=== PATIENT | female | born 1965 | race Caucasian/White ===

== ENCOUNTER 2020-02-27 15:39 | Outpatient (REF) | payer MEDICARE, MEDICAID, SELFPAY ==
--- NOTE | 2020-02-27 15:45 | XR_ITS ---
EXAMINATION: XR HIP, RIGHT CLINICAL INFORMATION: Right hip pain COMPARISON: None TECHNIQUE: Pelvis, AP view Right hip, 2 views FINDINGS: Multiple metallic tacks from mesh overlie the lower abdomen, periumbilical area. Bowel gas pattern is normal. Mild levocurvature of the lumbar spine. Pelvic bones have normal alignment. Mild joint degeneration with osteophyte formation of the pubic symphysis. The joint space of each hip is well-preserved. At the right hip, femoral head is well-positioned within the intact acetabulum. No evidence of arthritic disease, fracture or osteonecrosis. No suspicious lytic or osteoblastic lesion. Small, 0.5 cm soft tissue calcification is noted in the proximal thigh. No radiographic evidence of soft tissue mass. A few phleboliths are noted in the lower pelvis. There is likely a small focus of calcium hydroxyapatite deposition in the gluteus medius tendon of the left hip. XR/XR hip RT w PEL1V IMPRESSION: No specific source of right hip pain is identified. No evidence of degenerative joint disease at the right hip. No osteonecrosis, fracture or malalignment.
== END 2020-02-27 15:40 | disposition home or self-care (01) ==
LOC: HO.XRAY 15:39
PROVIDERS: PCP Family Medicine; Visit Provider Family Medicine
DX: M25.551 Pain in right hip (principal)
CPT/HCPCS: 73502

== ENCOUNTER 2020-03-22 15:32 | Outpatient (REF) | payer MEDICARE, MEDICAID, SELFPAY ==
--- NOTE | 2020-03-22 15:34 | US_ITS ---
EXAMINATION: US ABDOMEN LIMITED CLINICAL INFORMATION: Periumbilical pain. COMPARISON: None TECHNIQUE: Grayscale real-time imaging of the midline abdominal wall umbilical region. Color Doppler exam used. FINDINGS: Small pocket of fluid seen just deep to the skin line within the subcutaneous area at the midline. This is anechoic fluid with no increased vascularity on color Doppler. Fluid collection measures 1.2 x 0.4 x 0.9 cm. No ventral wall hernia. US/US abdomen limited IMPRESSION: There is a small anechoic fluid collection at the umbilicus just deep to the skin line. There is no ventral wall hernia.
--- NOTE | 2020-03-22 15:34 | XR_ITS ---
EXAMINATION: XR PELVIS CLINICAL INFORMATION: Right hip pain COMPARISON: Previous pelvis and right hip x-ray 02/27/2020 TECHNIQUE: AP view of the pelvis. FINDINGS: Bone alignment is normal. No fracture or dislocation is seen. The hip joints are normal. There is a small soft tissue calcification adjacent to the left greater trochanter. There is evidence of previous low abdominal or pelvic hernia repair with mesh. XR/XR pelvis 1-2V IMPRESSION: Soft tissue calcification adjacent to the left greater trochanter otherwise unremarkable exam
== END 2020-03-22 15:33 | disposition home or self-care (01) ==
LOC: HO.US 15:32
PROVIDERS: PCP Family Medicine; Visit Provider Family Medicine
DX: R10.33 Periumbilical pain (principal); M79.18 Myalgia, other site; M25.551 Pain in right hip
CPT/HCPCS: 72170; 76705

== ENCOUNTER → 2020-04-12 13:32 | Outpatient (BNVA) | payer MEDICARE, MEDICAID, SELFPAY | PROVIDERS: PCP Family Medicine; Visit Provider Surgery | DX: R10.33 Periumbilical pain (principal) | CPT/HCPCS: 99202 ==

== ENCOUNTER 2020-04-15 07:02 | Outpatient (REF) | payer MEDICARE, MEDICAID, SELFPAY ==
[2020-04-15 12:00] LABS: MANUAL DIFF FLAG NO
[2020-04-15 12:13] LABS: Basophils Absolute Auto 0.1 X10*3/uL (0.0-0.2); Basophils Percent Auto 1.2 % (0-2); Eosinophils Absolute Auto 0.6 X10*3/uL (0.0-0.4); Eosinophils Percent Auto 7.5 % (0-4); Hematocrit 44.4 % (37-47); Hemoglobin 13.8 g/dl (12.0-16.0); Imm Gran Abs Auto 0.02 X10*3/uL (0.00-0.03); Imm Gran Pct Auto 0.2 % (0.0-0.4); Lymphocytes Absolute Auto 3.4 X10*3/uL (1.2-4.9); Lymphocytes Percent Auto 40.1 % (20-40); Mean Corpuscular HGB Conc 31.1 g/dl (31.0-35.0); Mean Corpuscular Hemoglobin 28.6 pg (27.0-33.0); Mean Corpuscular Volume 92.1 fL (80-98); Mean Platelet Volume 10.6 fL (9.4-12.3); Monocytes Absolute Auto 0.8 X10*3/uL (0.1-1.2); Monocytes Percent Auto 9.8 % (2-11); Neutrophils Absolute Auto 3.4 X10*3/uL (2.0-8.3); Neutrophils Percent Auto 41.2 % (45-73); Platelet Count 345 X10*3/uL (160-400); Red Blood Count 4.82 X10*6/uL (4.20-5.50); Red Cell Distribution Width 14.3 % (11.0-16.0); White Blood Count 8.4 X10*3/uL (4.8-10.8)
[2020-04-15 12:54] LABS: Alanine Aminotransferase 10 U/L (0-31); Albumin Level 4.1 g/dL (3.5-5.0); Alkaline Phosphatase 112 U/L (39-117); Anion Gap 13 (12-20); Aspartate Amino Transferase 13 U/L (5-31); Bilirubin Total 0.4 mg/dL (0.0-1.0); Blood Urea Nitrogen 13 mg/dL (9-16); Calcium 8.8 mg/dL (8.4-10.2); Carbon Dioxide 28 mmol/L (22-29); Chloride 104 mmol/L (96-108); Estimated Glomerular Filt Rate > 60; Glucose Fasting 81 mg/dL (60-99); Potassium 4.9 mmol/l (3.3-5.1); Sodium 140 mmol/L (135-145); Total Protein 6.8 g/dL (6.5-8.0)
[2020-04-15 13:07] LABS: TSH reflex Free T4 1.26 mIU/mL (0.32-4.0)
== END 2020-04-15 07:03 | disposition home or self-care (01) ==
LOC: HO.WFDLDS 07:02
PROVIDERS: Visit Provider Family Medicine
DX: Z00.00 Encounter for general adult medical examination without abnormal findings (principal); R63.1 Polydipsia; T65.91XA Toxic effect of unspecified substance, accidental (unintentional), initial encounter
CPT/HCPCS: 36415; 80053; 84443; 85025

== ENCOUNTER 2020-04-16 07:05 | Outpatient (REF) | payer MEDICARE, MEDICAID, SELFPAY ==
--- NOTE | 2020-04-16 07:08 | CT_ITS ---
EXAMINATION: CT ABDOMEN AND PELVIS WITHOUT CONTRAST CLINICAL INFORMATION: Periumbilical pain. COMPARISON: Abdominal ultrasound dated 03/22/2020. TECHNIQUE: Multidetector volumetric imaging was performed from the superior aspect of the liver through the pubic symphysis. Sagittal and coronal reformatted images were obtained on the technologist's workstation. This CT examination was performed using dose optimization techniques as appropriate, variously including the following: *Automated exposure control *Adjustment of mA and/or kV according to patient size (this includes techniques or standardized protocols for targeted exams where dose is matched to indication/reason for exam; i.e. extremities or head) *Use of iterative reconstruction technique DLP: 767 mGy-cm FINDINGS: LUNG BASES: There is mild right middle lobe linear scar/subsegmental atelectasis. There is mild dependent hypoaeration. LIVER, GALLBLADDER, AND BILIARY TREE: The liver is normal in size, shape, and attenuation. No focal hepatic lesion or biliary ductal dilatation is present. The gallbladder is surgically absent. PANCREAS: Unremarkable. SPLEEN: There is no splenomegaly. Posteriorly within the spleen, there is a 1.6 x 1.4 cm low-attenuation collection with small central calcification. This may represent a hemangioma or mildly complex cyst. ADRENAL GLANDS: The right adrenal gland is unremarkable. There is a 3.1 x 3.0 cm benign, fat-containing left adrenal adenoma, with precontrast Hounsfield value of -10.2 units. KIDNEYS AND URETERS: The kidneys are normal in size, shape, and attenuation. No hydronephrosis, hydroureter, or calculi seen. No perinephric stranding. BLADDER: Unremarkable. GASTROINTESTINAL TRACT: There is a mild to moderate stool burden. There is mild diverticulosis, without acute diverticulitis. No bowel obstruction, free intraperitoneal air or abscess is seen. The vermiform appendix appears normal. ABDOMINAL WALL: Anterior abdominal wall herniorrhaphy mesh is noted. There is a small fat-containing umbilical hernia defect seen with neck measuring 2.0 x 1.5 cm (3:52 and 7:86). LYMPH NODES: No sizable abdominopelvic lymphadenopathy is seen. VASCULAR: There is mild aortic atherosclerotic calcification. No abdominal aortic aneurysm is seen. PELVIC VISCERA: The uterus and adnexa are unremarkable. OSSEOUS STRUCTURES: There is marked degenerative disc disease extending from L3-L4 through L5-S1. No acute or aggressive osseous abnormality is seen. CT/CT abdomen pelvis wo con IMPRESSION: 1. There has been a prior anterior abdominal wall herniorrhaphy. A small fat-containing umbilical hernia is seen, with dimensions as above. 2. No bowel obstruction, free intraperitoneal air or abscess is seen. There is mild diverticulosis, without acute diverticulitis. The appendix appears normal. 3. The gallbladder is surgically absent. 4. A 1.6 cm low-attenuation collection is seen within the spleen, with associated small calcifications. This may represent a hemangioma or mildly complex cyst, although the exact etiology is indeterminate. If of clinical concern, this can be further evaluated with ultrasound. 5. No abdominopelvic mass, free fluid or lymphadenopathy is seen. 6. There is marked degenerative disc disease extending from L3-L4 through L5-S1.
== END 2020-04-16 07:06 | disposition home or self-care (01) ==
LOC: HO.CT 07:05
PROVIDERS: Visit Provider Surgery
DX: R10.33 Periumbilical pain (principal)
CPT/HCPCS: 74176

== ENCOUNTER → 2020-04-22 14:13 | Outpatient (BNVA) | payer MEDICARE, MEDICAID, SELFPAY | PROVIDERS: PCP Family Medicine; Visit Provider Surgery | DX: K42.9 Umbilical hernia without obstruction or gangrene (principal); E66.01 Morbid (severe) obesity due to excess calories; Z68.41 Body mass index [BMI] 40.0-44.9, adult | CPT/HCPCS: 99212 ==

== ENCOUNTER → 2020-05-28 15:13 | Outpatient (BNVA) | payer MEDICARE, MEDICAID, SELFPAY | PROVIDERS: PCP Family Medicine; Visit Provider Student in an Organized Health Care Education/Training Program | DX: M25.50 Pain in unspecified joint (principal); F17.200 Nicotine dependence, unspecified, uncomplicated; Z71.6 Tobacco abuse counseling | CPT/HCPCS: 99202 ==

== ENCOUNTER 2020-05-29 07:30 | Outpatient (REF) | payer MEDICARE, MEDICAID, SELFPAY ==
--- NOTE | ~2020-05-29 | XR_ITS ---
EXAMINATION: XR CERVICAL SPINE XR HAND AND WRIST, RIGHT XR HAND, LEFT XR FOOT, LEFT CLINICAL INFORMATION: Pain COMPARISON: None TECHNIQUE: Cervical spine 3 views. Right hand/wrist 3 views. Left hand 3 views. Left foot 3 views. FINDINGS: CERVICAL SPINE: There is normal cervical lordosis. The vertebral heights and alignment is normal. There is loss of C5-C6 and C6-C7 disc height with ventral and posterior spondylosis. No visible acute fracture or dislocation seen. The prevertebral soft tissues are normal. RIGHT HAND/WRIST: There is mild loss of PIP and DIP joint space of all digits and 1st carpometacarpal joint space with periarticular moderate spurring. The rest of the joints in the hand and the wrist appears unremarkable. No visible acute fracture or dislocation seen. The soft tissues are normal. LEFT HAND: There is loss of PIP and DIP joint space. Also visualized is loss of 1st carpometacarpal joint space with moderate periarticular spurring. No visible acute fracture, dislocation or subluxation seen. The soft tissues are normal. LEFT FOOT: There is a small calcaneal heel and retrocalcaneal enthesophytes. Also visualized is dorsal intertarsal spurring. Mild loss of PIP and DIP joints is present all digits. Mild periarticular spurring is seen at the DIP joints 2nd and 3rd digit. There is no visible acute fracture or dislocation. XR/XR hand LT min 3V IMPRESSION: 1. Degenerative disc changes C5-C6 and C6-C7 disc levels. No visible acute fracture or dislocation or subluxation. 2. Degenerative arthritic changes both hands and wrist as described above. 3. Small enthesophytes along the dorsal intertarsal, retrocalcaneal and calcaneal heel sites. No visible acute fracture or dislocation seen.
--- NOTE | ~2020-05-29 | XR_ITS ---
EXAMINATION: XR CERVICAL SPINE XR HAND AND WRIST, RIGHT XR HAND, LEFT XR FOOT, LEFT CLINICAL INFORMATION: Pain COMPARISON: None TECHNIQUE: Cervical spine 3 views. Right hand/wrist 3 views. Left hand 3 views. Left foot 3 views. FINDINGS: CERVICAL SPINE: There is normal cervical lordosis. The vertebral heights and alignment is normal. There is loss of C5-C6 and C6-C7 disc height with ventral and posterior spondylosis. No visible acute fracture or dislocation seen. The prevertebral soft tissues are normal. RIGHT HAND/WRIST: There is mild loss of PIP and DIP joint space of all digits and 1st carpometacarpal joint space with periarticular moderate spurring. The rest of the joints in the hand and the wrist appears unremarkable. No visible acute fracture or dislocation seen. The soft tissues are normal. LEFT HAND: There is loss of PIP and DIP joint space. Also visualized is loss of 1st carpometacarpal joint space with moderate periarticular spurring. No visible acute fracture, dislocation or subluxation seen. The soft tissues are normal. LEFT FOOT: There is a small calcaneal heel and retrocalcaneal enthesophytes. Also visualized is dorsal intertarsal spurring. Mild loss of PIP and DIP joints is present all digits. Mild periarticular spurring is seen at the DIP joints 2nd and 3rd digit. There is no visible acute fracture or dislocation. XR/XR foot LT 2V IMPRESSION: 1. Degenerative disc changes C5-C6 and C6-C7 disc levels. No visible acute fracture or dislocation or subluxation. 2. Degenerative arthritic changes both hands and wrist as described above. 3. Small enthesophytes along the dorsal intertarsal, retrocalcaneal and calcaneal heel sites. No visible acute fracture or dislocation seen.
--- NOTE | ~2020-05-29 | XR_ITS ---
EXAMINATION: XR CERVICAL SPINE XR HAND AND WRIST, RIGHT XR HAND, LEFT XR FOOT, LEFT CLINICAL INFORMATION: Pain COMPARISON: None TECHNIQUE: Cervical spine 3 views. Right hand/wrist 3 views. Left hand 3 views. Left foot 3 views. FINDINGS: CERVICAL SPINE: There is normal cervical lordosis. The vertebral heights and alignment is normal. There is loss of C5-C6 and C6-C7 disc height with ventral and posterior spondylosis. No visible acute fracture or dislocation seen. The prevertebral soft tissues are normal. RIGHT HAND/WRIST: There is mild loss of PIP and DIP joint space of all digits and 1st carpometacarpal joint space with periarticular moderate spurring. The rest of the joints in the hand and the wrist appears unremarkable. No visible acute fracture or dislocation seen. The soft tissues are normal. LEFT HAND: There is loss of PIP and DIP joint space. Also visualized is loss of 1st carpometacarpal joint space with moderate periarticular spurring. No visible acute fracture, dislocation or subluxation seen. The soft tissues are normal. LEFT FOOT: There is a small calcaneal heel and retrocalcaneal enthesophytes. Also visualized is dorsal intertarsal spurring. Mild loss of PIP and DIP joints is present all digits. Mild periarticular spurring is seen at the DIP joints 2nd and 3rd digit. There is no visible acute fracture or dislocation. XR/XR cervical spine 2V IMPRESSION: 1. Degenerative disc changes C5-C6 and C6-C7 disc levels. No visible acute fracture or dislocation or subluxation. 2. Degenerative arthritic changes both hands and wrist as described above. 3. Small enthesophytes along the dorsal intertarsal, retrocalcaneal and calcaneal heel sites. No visible acute fracture or dislocation seen.
--- NOTE | ~2020-05-29 | XR_ITS ---
EXAMINATION: XR CERVICAL SPINE XR HAND AND WRIST, RIGHT XR HAND, LEFT XR FOOT, LEFT CLINICAL INFORMATION: Pain COMPARISON: None TECHNIQUE: Cervical spine 3 views. Right hand/wrist 3 views. Left hand 3 views. Left foot 3 views. FINDINGS: CERVICAL SPINE: There is normal cervical lordosis. The vertebral heights and alignment is normal. There is loss of C5-C6 and C6-C7 disc height with ventral and posterior spondylosis. No visible acute fracture or dislocation seen. The prevertebral soft tissues are normal. RIGHT HAND/WRIST: There is mild loss of PIP and DIP joint space of all digits and 1st carpometacarpal joint space with periarticular moderate spurring. The rest of the joints in the hand and the wrist appears unremarkable. No visible acute fracture or dislocation seen. The soft tissues are normal. LEFT HAND: There is loss of PIP and DIP joint space. Also visualized is loss of 1st carpometacarpal joint space with moderate periarticular spurring. No visible acute fracture, dislocation or subluxation seen. The soft tissues are normal. LEFT FOOT: There is a small calcaneal heel and retrocalcaneal enthesophytes. Also visualized is dorsal intertarsal spurring. Mild loss of PIP and DIP joints is present all digits. Mild periarticular spurring is seen at the DIP joints 2nd and 3rd digit. There is no visible acute fracture or dislocation. XR/XR hand wrist RT IMPRESSION: 1. Degenerative disc changes C5-C6 and C6-C7 disc levels. No visible acute fracture or dislocation or subluxation. 2. Degenerative arthritic changes both hands and wrist as described above. 3. Small enthesophytes along the dorsal intertarsal, retrocalcaneal and calcaneal heel sites. No visible acute fracture or dislocation seen.
[2020-05-29 07:59] LABS: MANUAL DIFF FLAG NO
[2020-05-29 08:25] LABS: Alanine Aminotransferase 12 U/L (0-31); Albumin Level 4.3 g/dL (3.5-5.0); Alkaline Phosphatase 120 U/L (39-117); Anion Gap 12 (12-20); Aspartate Amino Transferase 14 U/L (5-31); Bilirubin Total 0.5 mg/dL (0.0-1.0); Blood Urea Nitrogen 8 mg/dL (9-16); C Reactive Protein 0.19 mg/dL (< or = 0.50); Calcium 9.3 mg/dL (8.4-10.2); Carbon Dioxide 27 mmol/L (22-29); Chloride 105 mmol/L (96-108); Estimated Glomerular Filt Rate > 60; Glucose Random 92 mg/dL (60-115); Potassium 4.6 mmol/L (3.3-5.1); Rheumatoid Factor < 15.0 IU/mL (<15.0); Sodium 139 mmol/L (135-145)
[2020-05-29 08:28] LABS: Basophils Absolute Auto 0.1 X10*3/uL (0.0-0.2); Basophils Percent Auto 1.3 % (0-2); Eosinophils Absolute Auto 0.8 X10*3/uL (0.0-0.4); Eosinophils Percent Auto 11.3 % (0-4); Hematocrit 44.7 % (37-47); Imm Gran Abs Auto 0.02 X10*3/uL (0.00-0.03); Imm Gran Pct Auto 0.3 % (0.0-0.4); Lymphocytes Absolute Auto 2.5 X10*3/uL (1.2-4.9); Lymphocytes Percent Auto 35.4 % (20-40); Mean Corpuscular HGB Conc 31.3 g/dl (31.0-35.0); Mean Corpuscular Hemoglobin 28.3 pg (27.0-33.0); Mean Corpuscular Volume 90.3 fL (80-98); Monocytes Absolute Auto 0.7 X10*3/uL (0.1-1.2); Monocytes Percent Auto 9.2 % (2-11); Neutrophils Percent Auto 42.5 % (45-73); Platelet Count 355 X10*3/uL (160-400); Red Blood Count 4.95 X10*6/uL (4.20-5.50); Red Cell Distribution Width 14.3 % (11.0-16.0); White Blood Count 7.1 X10*3/uL (4.8-10.8)
[2020-05-29 08:48] LABS: Thyroid Stimulating Hormone 0.51 uIU/mL (0.32-4.0)
[2020-05-29 09:28] LABS: Erythrocyte Sedimentation Rate 13 MM/HR (0-20)
[2020-05-31 13:01] LABS: Cyclic Citrullinated Peptide <16 UNITS
[2020-05-31 19:36] LABS: Anti Nuclear Antibody Screen NEGATIVE (NEGATIVE)
[2020-06-01 13:52] LABS: Antibody to SS-A Antigen <1.0 NEG AI (<1.0 NEG); Antibody to SS-B Antigen <1.0 NEG AI (<1.0 NEG)
[2020-06-02 13:22] LABS: Vitamin D 25-OH, D2 5 ng/mL; Vitamin D 25-OH, D3 24 ng/mL; Vitamin D 25-OH, Total 29 ng/mL (30-100)
== END 2020-05-29 07:31 | disposition home or self-care (01) ==
LOC: HO.XRAY 07:30
PROVIDERS: PCP Family Medicine; Visit Provider Student in an Organized Health Care Education/Training Program
DX: M25.50 Pain in unspecified joint (principal)
CPT/HCPCS: 36415; 72040; 73110; 73130; 73620; 80053; 82306; 84443; 85025; 85652; 86038; 86039; 86140; 86200; 86235; 86431

== ENCOUNTER 2020-06-16 07:00 | Outpatient (RCR) | payer MEDICARE, MEDICAID, SELFPAY ==
--- NOTE | 2020-03-10 09:48 | MHC.PT.EP ---
[facility] [place] Office [place] Office [place] Office [address] Ivon Corona [address] [phone] F: [phone] F: [phone] F: [phone] F: [phone] Physical Therapy Plan of Care Date of Evaluation: 03/10/20 Date of Surgery: NA Diagnosis: CONTUSION R HIP S/P FALL Assessment: Pt IS 55 YO F REFERRED TO PT FROM DR DICKINSON WITH CONTUSION R HIP S/P FALL ON 02/26/20. Pt REPORTS PT IN PAST WITH CONTINUATION OF EXS/STRETCHES. PRESENTS WITH DECREASED R LE FLEXIBILITY AND STRENGTH. LIMP WITH GT AND LIMITED SLS. Pt REPORTS PAIN R HIP/LE LIMITING FUNCTIONAL MOBILITY AND ABILITY TO SLEEP. OF NOTE, Pt REPORTS SIGNIF OA IN HANDS AFFECTING INDEPENDENCE. Pt IS ON SOCIAL SECURITY AND WORKING ON GETTING A CUSHION BUILDER TO HELP AT HER HOME. REPORTS PT IN PAST WITH GOOD RESULTS Frequency and Duration: The patient will be seen 2X/WK X 4 WEEKS Short Term Goals: 1. INCREASED AWARENESS HIP CARE AND OVERALL BODY MECH 2. CENTRALIZED SXS 3. IMPROVED SLEEP 4. NO LIMP WITH GT (INCREASED STANCE TIME R) 5. SLS R X 10 SEC Alf Goals: 1. I HEP WITH DC EX PLAN 2. IMPROVED LEFI 3. DECREASED R HIP/LE PAIN AT LEAST 50% WITH ADLS 4. INCREASE TRUNK SB AND ROT R 25% Treatment Plan: Modalities to reduce pain, spasms and effusion. Manual therapy to restore motion and function. Therapeutic exercise to improve strength and flexibility. Neuromuscular re-education for posture and balance. Therapeutic activities to return to functional activities of daily living. Electronically signed by: FARZANA BROWER PT Please sign and return to therapist. Thank you for your referral.
--- NOTE | 2020-06-16 08:05 | MHC.PT.DC ---
[facility] [place] Office [place] Office [place] Office [address] Ivon Corona 140 [facility] [phone] F: [phone] F: [phone] F: [phone] F: [phone] Physical Therapy Discharge Report Diagnosis: CONTUSION R HIP S/P FALL Date of Surgery: NA Date of Evaluation: 03/10/20 Date of Discharge: 06/16/20 Treatments to Date: 15 Cancellations to Date: 1 No Shows to Date: 0 Discharge Status: Achieved Goals Improved Function Independent with HEP Discharge Summary: HAS MET MOST PT GOALS Electronically signed by: FARZANA BROWER PT Please sign and return to therapist. Thank you for your referral.
== END 2020-06-17 12:20 | disposition other institution (70) ==
LOC: HO.PTWFD 07:00
PROVIDERS: PCP Family Medicine; Visit Provider Family Medicine
DX: M25.551 Pain in right hip (principal); M79.18 Myalgia, other site; S70.01XD Contusion of right hip, subsequent encounter
CPT/HCPCS: 87071; 87205; 97110; 97140; 97162; 97530

== ENCOUNTER → 2020-06-17 14:13 | Outpatient (BNVA) | payer MEDICARE, MEDICAID, SELFPAY | PROVIDERS: Visit Provider Student in an Organized Health Care Education/Training Program | DX: M25.50 Pain in unspecified joint (principal) | CPT/HCPCS: 99212 ==

== ENCOUNTER 2020-07-19 07:30 | Outpatient (RCR) | payer MEDICARE, MEDICAID, SELFPAY ==
--- NOTE | 2020-06-21 15:20 | MHC.OT.OEV ---
[address] [phone] F: [phone] Occupational Therapy Evaluation Diagnosis: B/L OA Date of Onset: 03/19/18 Attending Provider: Dr Lion Prescribed Treatment: Karly and Rand SWAIN Follow Up Appointment: History of Current Condition: Pt with worsening pain in the hands over the past few years, has gone to physical therapy in the past with some relief, follows a HEP and does epsom salt warm baths for relief. PCP referred to rheumatology and now to OT for conservative management of bilateral hand OA. X-ray of hands show bilaterally mild OA changes in IP's and moderate spurring on CMCs. Significant Medical History: Osteoporosis Arthritis Back Pain Right CTR Precautions/Contraindications: Patient Goals: Relieve the pain Hand Dominance: Right Observations: Wearing isotonor gloves bilaterally QuickDASH Score: 88 Prior Level of Function and Occupation Self Care, Employment, Leisure: On disability Assists w/ homeschooling 7 year old grandson Enjoys hiking, cleaning, playing and coloring with her grandson Living Situation, Family and/or Social Support: Lives w/ son and grandson Current Level of Function and Occupation Self Care, Employment, Leisure: Son has been assisting with laundry (for lifting) Sleep: Also has insomnia and sleep apnea More recent increase in pain has worsened sleep Driving: Limited driving Pain Assessment Pain Score: 10 Pain Scale Used: Numeric (0 - 10) Pain Location and Description: Constant 10/10 pain in right hand, 5/5 left hand Aggravating Factors: Heaving lifting, gripping, grasping pens/crayons Alleviating Factors: Warm water baths for relief w/ epsom salts Trues to avoid pain medications Skin and Soft Tissue Assessment Skin and Soft Tissue: Comments: No nodudles observed Nerve assessment Ulnar Nerve: B/L Impaired Median Nerve: B/L Impaired Radial Nerve: B/L Impaired Comments: General weakness 4-/5 Sensory Assessment Temperature: Light Touch: Proprioception: Vibration: Comments: Intact light touch bilaterally Pt reports occasional numbness in left D1-D3 Edema Assessment Upper Extremity: WNL Lower Extremity: WNL Comments: Dexterity Assessment Dexterity: Comments: Special Tests Comments: (-) grind right (+) grind left (+) Terese's sign B/L'ly (-) Phalen's B/L'ly AROM(PROM) Strength Cervical Cervical Flexion: Cervical Extension: Cervical Lateral Flexion: Cervical Rotation: Comments: WNL Shoulder Flexion: Extension: Abduction: Internal Rotation: External Rotation: Comments: WNL Flexion: Extension: Abduction: Internal Rotation: External Rotation: Comments: Elbow Flexion: Extension: Pronation: Supination: Comments: WNL Flexion: Extension: Pronation: Supination: Comments: Wrist Flexion: R 60 L 70 Extension: R 70 L 72 Ulnar Deviation: R 28 L 42 Radial Deviation: R 12 L 15 Comments: Flexion: Extension: Ulnar Deviation: Radial Deviation: Comments: Thumb Thumb CMC Flexion: R 32 L 20 Thumb MCP Flexion: R 34 L 54 Thumb IP Flexion: R 44 L 42 Radial Abduction: R 46 L 42 Palmar Abduction: R 46 L 42 Whiteface (Kapandji 0-10): R 8 L 9 Comments: Slightly limited rotation bilaterally w/ okay positioning Digits Index MCP: PIP: DIP: Long MCP: PIP: DIP: Ring MCP: PIP: DIP: Small MCP: PIP: DIP: Comments: WNL, avoids active flexion of index, passive to full range Pt w/ grade 3 trigger finger, locks but is able to unlock passively, tenderness to volar D2 MCP Gross Grasp: R 5 L 18 Lateral Pinch: R 1 L 1 Two-Point Pinch: R 1 L 1 Three-Jaw Larry: R 1 L 2 Comments: avoiding right index w/ gross grasp due to trigger finger Patient Education Primary Language: Turkmen Stunner Required: No Current Knowledge: Understands information with skills for self-management Teaching Method: Demonstration Handouts Verbal Education Needs Identified on Evaluation: ADL's Disease Information Equipment Use Exercise Pain Safety How did patient/family demonstrate learning? Patient demonstrates Patient verbalizes Barriers to Learning: None Readiness for Learning: Accepting Who was educated? Patient Comments: Joint protection HEP Plan of Care Assessment: 55 yo female w/ history of osteoarthritis presents w/ persistent pain in both hands. Assessment shows decreased strength and decreased functional capacity, she has mild malpositioning at bilateral CMC's, left is worse than right w/ positive grind test. She also reports numbness in left hand D1-D3 and right index trigger finger. She will benefit from cont'd therapy services to address hand pain and functional limitations. STG Duration: 1 week Short Term Goals: Ind w/ orthosis wear Ind w/ HEP Good follow through w/ joint protection/activity modification techniques Pt to report zero trigger w/ consistency of oval 8 orthosis to index LTG Duration: 4 weeks Returned Case Inspector Goals: Right gross grasp >15lb Left gross grasp >25lb <3/10 resting pain right hand <1/10 resting pain left hand Quickdash score <50 pts Frequency and Duration: The patient will be seen 2x/wk for 4 weeks Treatment Plan: Therapeutic Exercise Therapeutic Activity Home Exercise Program Splinting Patient Education ADL Training Ultrasound Paraffin Fluidotherapy MHP Cold Packs Joint Mobilization Soft Tissue Mobilization Kinesiotaping Electronically Signed By: Ghada Swanson OTR/L Reviewed/agree with student documentation: N/A Please sign and return to therapist, Thank you for your referral.
--- NOTE | 2020-07-20 08:43 | MHC.OT.DC ---
[address] [phone] F: [phone] Occupational Therapy Discharge Note Provider: Dr Lion Diagnosis: B/L OA Date of Evaluation: 06/21/20 Date of Discharge: 07/19/20 Treatments to Date: 8 Cancellations to Date: 0 No Shows to Date: 0 Discharge Status: Achieved Goals Improved Function Independent with HEP Discharge Summary: Goals met, still with moderate pain at times, will benefit from orthosis wear (she has not yet gotten correct thumb spica splints) and AE use. Gross grasp R 25lb (pain free) L 42lb QuickDASH score 7.5 Electronically Signed By: Ghada Swanson OTR/L Reviewed/agree with student documentation: N/A Please Sign and return to therapist, thank you for your referral.
== END 2020-07-20 08:44 | disposition other institution (70) ==
LOC: HO.OT 07:30
PROVIDERS: PCP Family Medicine; Visit Provider Student in an Organized Health Care Education/Training Program
DX: M79.642 Pain in left hand (principal); M79.641 Pain in right hand
CPT/HCPCS: 29130; 97035; 97110; 97140; 97165; 97760

== ENCOUNTER 2020-07-22 07:00 | Outpatient (RCR) | payer MEDICARE, MEDICAID, SELFPAY ==
--- NOTE | 2020-06-25 09:03 | MHC.PT.EP ---
[facility] [place] Office [place] Office [place] Office [address] Ivon Corona [address] [phone] F: [phone] F: [phone] F: [phone] F: [phone] Physical Therapy Plan of Care Date of Evaluation: 06/25/20 Date of Surgery: NA Diagnosis: cervical spine and B ankle pain Assessment: 55 year old female referred for cervical spine and B ankle pain. Pt reports of having h/o chronic pain due to arthritis which has gotten worse with time. She denies any trauma or falls. Pt has difficulty performing over head activities, self care activities, walking, standing and sleeping due to muscle guarding in L UT, TTP over L UT, decreased cervical motions, decreased shoulder and cervical strength, decreased muscle strength in B LE, impaired posture and gait. She would benefit from PT to address these impairments and increase tolerance to activities. She is a good candidate for PT based on age, goals, physical impairments and functional limitations. Frequency and Duration: The patient will be seen 2/week for 5 weeks Short Term Goals: 1. Pt will have 50% decrease in pain in her neck which enable her to sleep through the night in 2 weeks. 2. Pt will demonstrate full shoulder ROM which would enable her to dress self with a pain no more than 2/10 in 3 weeks. [employer] Hand Goals: 1. Pt will demonstrate increase in muscle strength by 1 grade which would enable her to walk, stand and hike with a pain no more than 2/10 in B ankle in 5 weeks. 2. Pt will be independent with HEPs for symptom management and maintenance following discharge in 5 weeks. Treatment Plan: Modalities to reduce pain, spasms and effusion. Manual therapy to restore motion and function. Therapeutic exercise to improve strength and flexibility. Neuromuscular re-education for posture and balance. Therapeutic activities to return to functional activities of daily living. Electronically signed by: Elle Jones, PT, DPT Please sign and return to therapist. Thank you for your referral.
--- NOTE | 2020-08-11 15:08 | MHC.PT.DC ---
[facility] [place] Office [place] [facility] [place] Office [address] Ivon Corona [address] [phone] F: [phone] F: [phone] F: [phone] F: [phone] Physical Therapy Discharge Report Diagnosis: cervical spine and B ankle pain Date of Surgery: NA Date of Evaluation: 06/25/20 Date of Discharge: 08/11/20 Treatments to Date: 9 Cancellations to Date: 0 No Shows to Date: 0 Discharge Status: Achieved Goals Improved Function Independent with HEP Discharge Summary: Tammy has completed 9 PT visits and has noted significant improvement in her pain levels and functions. She is independent with all HEPs as well. She was therefore d/c from therapy. Electronically signed by: Elle Jones, PT, DPT Please sign and return to therapist. Thank you for your referral.
== END 2020-08-11 15:08 | disposition other institution (70) ==
LOC: HO.PT 07:00
PROVIDERS: PCP Family Medicine; Visit Provider Student in an Organized Health Care Education/Training Program
DX: M25.50 Pain in unspecified joint (principal)
CPT/HCPCS: 97033; 97035; 97110; 97112; 97140; 97162; 97530

== ENCOUNTER 2023-07-26 06:12 | Outpatient (REF) | payer MEDICARE, MEDICAID, SELFPAY ==
--- NOTE | ~2023-07-26 | XR_ITS ---
EXAMINATION: XR CERVICAL SPINE XR HAND AND WRIST, RIGHT XR HAND, LEFT CLINICAL INFORMATION: Pain. COMPARISON: 05/29/2020 x-ray cervical spine, right hand/wrist, left hand. TECHNIQUE: Cervical spine 4 views. Right hand3 views. Left hand 3 views. FINDINGS: CERVICAL SPINE: Degenerative changes between the anterior arch of C1 and the odontoid. Mild anterolisthesis of C4 on C5. Multilevel cervical spondylosis with advanced degenerative changes and loss of disc space height at C5-C6 and C6-C7 as previously noted. Minimal anterolisthesis of C7 on T1. Rightward curvature with degenerative changes in the partially imaged upper thoracic spine. RIGHT HAND: Vzfg-ku-ovcrucvx degenerative changes in the DIP and PIP joints with joint space narrowing and hypertrophic change most notable in the right third and fifth DIP joints. Marked degenerative changes in the first carpometacarpal joint with joint space narrowing and hypertrophic change. Ulnar-negative variance. LEFT HAND: Lfez-ff-hkcgypcx degenerative changes in the PIP and DIP joints with joint space narrowing and hypertrophic change. Marked degenerative changes in the first carpometacarpal joint with joint space narrowing and hypertrophic change. Ulnar-negative variance. XR/XR hand LT min 3V IMPRESSION: 1. Multilevel cervical spondylosis with advanced degenerative changes at C5-C6 and C6-C7. 2. Jaeh-yh-kmlogrrk degenerative changes in the bilateral hands. 3. Marked degenerative changes in the bilateral first carpometacarpal joints.
--- NOTE | ~2023-07-26 | XR_ITS ---
EXAMINATION: XR CERVICAL SPINE XR HAND AND WRIST, RIGHT XR HAND, LEFT CLINICAL INFORMATION: Pain. COMPARISON: 05/29/2020 x-ray cervical spine, right hand/wrist, left hand. TECHNIQUE: Cervical spine 4 views. Right hand3 views. Left hand 3 views. FINDINGS: CERVICAL SPINE: Degenerative changes between the anterior arch of C1 and the odontoid. Mild anterolisthesis of C4 on C5. Multilevel cervical spondylosis with advanced degenerative changes and loss of disc space height at C5-C6 and C6-C7 as previously noted. Minimal anterolisthesis of C7 on T1. Rightward curvature with degenerative changes in the partially imaged upper thoracic spine. RIGHT HAND: Qsao-uf-nlsbnkci degenerative changes in the DIP and PIP joints with joint space narrowing and hypertrophic change most notable in the right third and fifth DIP joints. Marked degenerative changes in the first carpometacarpal joint with joint space narrowing and hypertrophic change. Ulnar-negative variance. LEFT HAND: Hneb-mw-rgrnhywx degenerative changes in the PIP and DIP joints with joint space narrowing and hypertrophic change. Marked degenerative changes in the first carpometacarpal joint with joint space narrowing and hypertrophic change. Ulnar-negative variance. XR/XR cervical spine 2V IMPRESSION: 1. Multilevel cervical spondylosis with advanced degenerative changes at C5-C6 and C6-C7. 2. Hqir-uz-pimiuwzx degenerative changes in the bilateral hands. 3. Marked degenerative changes in the bilateral first carpometacarpal joints.
--- NOTE | ~2023-07-26 | XR_ITS ---
EXAMINATION: XR CERVICAL SPINE XR HAND AND WRIST, RIGHT XR HAND, LEFT CLINICAL INFORMATION: Pain. COMPARISON: 05/29/2020 x-ray cervical spine, right hand/wrist, left hand. TECHNIQUE: Cervical spine 4 views. Right hand3 views. Left hand 3 views. FINDINGS: CERVICAL SPINE: Degenerative changes between the anterior arch of C1 and the odontoid. Mild anterolisthesis of C4 on C5. Multilevel cervical spondylosis with advanced degenerative changes and loss of disc space height at C5-C6 and C6-C7 as previously noted. Minimal anterolisthesis of C7 on T1. Rightward curvature with degenerative changes in the partially imaged upper thoracic spine. RIGHT HAND: Sdov-fh-cotexpsk degenerative changes in the DIP and PIP joints with joint space narrowing and hypertrophic change most notable in the right third and fifth DIP joints. Marked degenerative changes in the first carpometacarpal joint with joint space narrowing and hypertrophic change. Ulnar-negative variance. LEFT HAND: Xzlv-mk-sodhvjvr degenerative changes in the PIP and DIP joints with joint space narrowing and hypertrophic change. Marked degenerative changes in the first carpometacarpal joint with joint space narrowing and hypertrophic change. Ulnar-negative variance. XR/XR hand RT min 3V IMPRESSION: 1. Multilevel cervical spondylosis with advanced degenerative changes at C5-C6 and C6-C7. 2. Ekxp-mz-efykemoq degenerative changes in the bilateral hands. 3. Marked degenerative changes in the bilateral first carpometacarpal joints.
== END 2023-07-26 06:13 | disposition home or self-care (01) ==
LOC: HO.XRAY 06:12
PROVIDERS: PCP Family Medicine; Visit Provider Family Medicine
DX: M54.2 Cervicalgia (principal); M79.641 Pain in right hand; M79.642 Pain in left hand
CPT/HCPCS: 72040; 73130

== ENCOUNTER 2023-07-27 07:03 | Outpatient (REF) | payer MEDICARE, MEDICAID, SELFPAY ==
[2023-07-27 11:40] LABS: Appearance Urine Turbid; Color Urine Yellow; Glucose Urine UA Negative (Negative); Leukocyte Esterase Urine Small (1+) (Negative); Nitrite Urine Negative (Negative); UMIC TRIGGER UA YES; Urine Blood Negative (Negative); Urine Ketones Negative (Negative); Urine Protein Negative (Neg-Trace)
[2023-07-27 11:42] LABS: MANUAL DIFF FLAG NO
[2023-07-27 11:50] LABS: Basophils Absolute Auto 0.1 X10*3/uL (0.0-0.2); Basophils Percent Auto 1.1 % (0-2); Eosinophils Absolute Auto 0.6 X10*3/uL (0.0-0.4); Eosinophils Percent Auto 8.1 % (0-4); Hemoglobin 14.5 g/dl (12.0-16.0); Imm Gran Abs Auto 0.04 X10*3/uL (0.00-0.03); Imm Gran Pct Auto 0.5 % (0.0-0.4); Lymphocytes Absolute Auto 3.3 X10*3/uL (1.2-4.9); Lymphocytes Percent Auto 43.5 % (20-40); Mean Corpuscular HGB Conc 32.2 g/dl (31.0-35.0); Monocytes Absolute Auto 0.7 X10*3/uL (0.1-1.2); Monocytes Percent Auto 9.4 % (2-11); Neutrophils Absolute Auto 2.8 x10*3/uL (2.0-8.3); Neutrophils Percent Auto 37.4 % (45-73); Platelet Count 381 X10*3/uL (160-400); Red Cell Distribution Width 14.6 % (11.0-16.0); White Blood Count 7.6 X10*3/uL (4.8-10.8)
[2023-07-27 11:50] LABS: Bacteria Urine None Seen (None Seen); Hyaline Casts Urine 0-2 /LPF (0-2); RBC Urine 0-2 /HPF (0-2); Squamous Epithelial Cell Urine 0-2 /HPF (0-2); WBC Urine 0-5 /HPF (0-5)
[2023-07-27 12:17] LABS: Creatinine Urine 119.96 mg/dL; Microalbum/Creatinine Ratio Ur 9.1 ug/mg cr (<30)
[2023-07-27 12:18] LABS: Erythrocyte Sedimentation Rate 9 MM/HR (0-20)
[2023-07-27 12:18] LABS: Rheumatoid Factor < 13.0 IU/mL (<15.0)
[2023-07-27 12:44] LABS: Alanine Aminotransferase 12 U/L (0-31); Alkaline Phosphatase 114 U/L (39-117); Anion Gap 15 (12-20); Aspartate Amino Transferase 13 U/L (5-31); Bilirubin Total 0.3 mg/dL (0.0-1.0); Blood Urea Nitrogen 14 mg/dL (9-16); Calcium 9.6 mg/dL (8.4-10.2); Carbon Dioxide 24 mmol/L (22-29); Chloride 107 mmol/L (96-108); Cholesterol 287 mg/dL (<200); Estimated Glomerular Filt Rate > 60; Glucose Fasting 71 mg/dL (60-99); HDL Cholesterol 51 mg/dL (>40); LDL Cholesterol Calculated 210 mg/dL (<100); Potassium 4.4 mmol/L (3.3-5.1); Sodium 142 mmol/L (135-145); Total Protein 7.3 g/dL (6.5-8.0); Triglycerides 132 mg/dL (<150); Vitamin D 25-OH Total 23.6 ng/mL (>30)
[2023-07-29 08:18] LABS: Anti Nuclear Antibody Screen NEGATIVE (NEGATIVE)
[2023-07-30 14:33] LABS: Cyclic Citrullinated Peptide <16 UNITS
[2023-07-31 21:39] LABS: CRP High Sensitivity 0.2 mg/L
[2023-08-02 02:09] LABS: Lyme Abs Screen <0.90 index
== END 2023-07-27 07:04 | disposition home or self-care (01) ==
LOC: HO.WFDLDS 07:03
PROVIDERS: Visit Provider Family Medicine
DX: Z00.00 Encounter for general adult medical examination without abnormal findings (principal); M25.50 Pain in unspecified joint; I10 Essential (primary) hypertension; E55.9 Vitamin D deficiency, unspecified
CPT/HCPCS: 36415; 80053; 80061; 81001; 82043; 82306; 82570; 84443; 85025; 85652; 86038; 86141; 86200; 86431; 86617; 86618

== ENCOUNTER 2023-08-03 08:59 | Outpatient (REF) | payer MEDICARE, MEDICAID, SELFPAY ==
--- NOTE | ~2023-08-03 | MM_ITS ---
EXAMINATION: MM DIAGNOSTIC DIGITAL BREAST TOMOSYNTHESIS, BILATERAL US BREAST LIMITED, RIGHT MAMMOGRAPHY: CLINICAL INFORMATION: Patient complaining of red and swollen lesion right breast 9:00 axis, likely dermal in origin. Patient has not had formal screening mammography since 2016 and is due for bilateral screening. COMPARISON: Mammography: 09/13/2015, 09/11/2014, 09/09/2013. TECHNIQUE: Digital breast tomosynthesis is performed in both the craniocaudal and mediolateral oblique views along with computer-aided detection (CAD). Synthesized 2D images are generated from the tomosynthesis. Added bilateral full-field MLO views were provided. FINDINGS: There are scattered areas of fibroglandular density (ACR BI-RADS breast composition Category b). In the 9:00 far lateral right breast, posterior one third, there is an inflamed appearing small dermal lesion which will be evaluated with ultrasound. Otherwise, stable small normal-appearing lymph nodes are noted in the upper outer regions of both breasts, benign. There are no suspicious masses, suspicious grouped calcifications, or areas of architectural distortion in either breast. The parenchymal pattern is stable from prior exams. No axillary abnormalities. ULTRASOUND: CLINICAL INFORMATION: Patient complaining of red and swollen lesion right breast 9:00 axis, likely dermal in origin COMPARISON: None relevant. TECHNIQUE: Targeted sonographic evaluation right breast was performed using a high frequency linear transducer. Attention was given to the 9:00 axis of the right breast. Selected archived documentation. FINDINGS: RIGHT BREAST: -There is a dermal lesion in the 9:00 axis approximately 16 cm from the nipple with slightly irregular margins and associated skin anything, measuring 0.9 x 0.7 x 0.9 cm, with robust internal and peripheral color Doppler flow. This finding is consistent with a sebaceous cyst, likely infected. Normal-appearing lymph node noted 9:00 axis measuring 7 mm with normal fatty hilum and normal thickness cortex. No suspicious masses or abnormal shadowing noted. MM/MM tomosynthesis diagnostic BI IMPRESSION: 1. There is no mammographic evidence of malignancy in either breast. There are stable benign findings. 2. In the 9:00 axis of the right breast, 16 cm from the nipple, there is a sebaceous cyst measuring 0.9 x 0.7 x 0.9 cm, likely infected. Recommend clinical/surgical management OVERALL ASSESSMENT: Mammography: BI-RADS 2 - Benign Findings Ultrasound: BI-RADS 2 - Benign Findings RECOMMENDATION: 1. Patient should be managed based on the clinical impression. 2. Otherwise, routine annual screening mammography. Results were provided to the patient at time of visit by the technologist. This patient's information was entered into a reminder system with a target due date for their next mammogram.
== END 2023-08-03 09:00 | disposition home or self-care (01) ==
LOC: HO.MAMMO 08:59
PROVIDERS: PCP Family Medicine; Visit Provider Family Medicine
DX: N63.15 Unspecified lump in the right breast, overlapping quadrants (principal)
CPT/HCPCS: 76642; 77062; 77066

== ENCOUNTER → 2023-08-03 09:30 | Outpatient (BNV) | payer MEDICARE, MEDICAID, SELFPAY | PROVIDERS: PCP Family Medicine; Visit Provider Radiology Diagnostic Radiology | DX: N63.15 Unspecified lump in the right breast, overlapping quadrants (principal) | CPT/HCPCS: 76642; 77066; G0279 ==

== ENCOUNTER 2023-08-08 08:07 | Outpatient (AMB) | payer MEDICARE, MEDICAID, SELFPAY ==
--- NOTE | 2023-08-08 08:09 | MHC.OFFWIV ---
Intake Vital Signs 08/08/23 08:10 Height 5 ft Weight 198 lb BMI 38.7 BP 124/62 Blood Pressure Location Rt brachial Position Sitting Pulse 93 Pulse Source Pulse Oximeter Pulse Oximetry (%) 98 Oxygen Delivery Method Room Air Intake Visit Reasons: Right side infection Patient Tobacco Use Status: Current everyday Tobacco user Allergies Seasonale Allergy (Unknown, Uncoded 08/08/23 08:14) Sneezing, coughing, coongestion Medication List - Last Reconciled 08/08/23 by NIKHIL Agosto- diclofenac sodium 1% 4 grams topical QID 30 days fluticasone propionate 50 mcg/actuation (Flonase Allergy Relief) 1 spray intranasal BID 30 days HPI HPI Comments History of Present Illness Details Here today with complaints of a red, painful open area to the right side of her breast. This started several days ago, is worse since onset. Did see primary care who [facility] for a diagnostic mammogram with ultrasound. Results below. -There is a dermal lesion in the 9:00 axis approximately 16 cm from the nipple with slightly irregular margins and associated skin anything, measuring 0.9 x 0.7 x 0.9 cm, with robust internal and peripheral color Doppler flow. This finding is consistent with a sebaceous cyst, likely infected. Patient does have an appointment with Dr. Reynoso to have this area excised on 08/20/2023. Since onset the area is increasingly red, painful, having some purulent drainage. She denies any fever. [facility] Medical History Umbilical hernia Morbid obesity Surgical History History of umbilical hernia repair History of cholecystectomy History of tubal ligation History of carpal tunnel surgery Family History Mother History of ovarian cancer Father No problems noted. Mother No problems noted. Brother No problems noted. Brother No problems noted. Sister No problems noted. Son No problems noted. Daughter No problems noted. Daughter No problems noted. Social History Housing: Apartment Alcohol intake: never Patient Tobacco Use Status: Current everyday Tobacco user Cigarettes Per Day: 5 Years Smoked: 18 e-Cigarette/Vaping Use: Never Used service: No Current occupational status: disabled Cognitive needs: No Hearing needs: No Vision needs: No Review of Systems Const All systems reviewed & are unremarkable except as noted in HPI and below Physical Exam Chest Chest/axillae images: 1. Large erythematous warm to touch cyst, Center with soft yellow purulent Center. Area outlined with a surgical marker. Lesion is located at the 09:00 o'clock area of the right outer breast Assessment & Plan Assessment & Plan (1) Infected sebaceous cyst: Code(s): L72.3 - Sebaceous cyst; L08.9 - Local infection of the skin and subcutaneous tissue, unspecified Plan: Affecting right breast. Treat with dual antibiotic therapy. Warm moist compresses. Gentle massage. Avoid squeezing. Return to office in 1 week for further evaluation. The area was outlined with a surgical marker. Educated that if the redness extends beyond the surgical markings that she should seek care immediately. Medications: New amoxicillin-pot clavulanate 875-125 mg 1 tab PO BID 7 days 14 tabs 0RF sulfamethoxazole-trimethoprim 800-160 mg (Bactrim DS) 1 tab PO BID 7 days 14 tabs 0RF Patient Instructions: Affecting right breast. Treat with dual antibiotic therapy. Warm moist compresses. Gentle massage. Avoid squeezing. Return to office in 1 week for further evaluation. The area was outlined with a surgical marker. Educated that if the redness extends beyond the surgical markings that she should seek care immediately. Coding Level of Care Code Est Pt Level 4 (44460) Diagnoses Infected sebaceous cyst L72.3; L08.9
[2023-08-08 08:10] VITALS: BP 124/62; PULSE 93; O2SAT 98; BMI 38.7
== END 2023-08-08 13:52 | disposition home or self-care (01) ==
PROVIDERS: PCP Family Medicine; Visit Provider Nurse Practitioner Family
DX: L72.3 Sebaceous cyst (principal); L08.9 Local infection of the skin and subcutaneous tissue, unspecified
CPT/HCPCS: 99214

== ENCOUNTER 2023-08-15 13:00 | Outpatient (AMB) | payer MEDICARE, MEDICAID, SELFPAY ==
--- NOTE | 2023-08-15 13:03 | MHC.PC.OV ---
Vital Signs 08/15/23 13:04 Height 5 ft Weight 198 lb BMI 38.7 BP 128/64 Blood Pressure Location Lt brachial Position Sitting Pulse 97 Pulse Source Pulse Oximeter Pulse Oximetry (%) 97 Oxygen Delivery Method Room Air Intake Visit Reasons: 1 week fu cyst R breast Intake Note: Patient is here for follow up on cyst in right breast, last day of antibiotics. Patient states she has appointments with [facility], one Sunday, and 1 in September. Allergies Seasonale Allergy (Unknown, Uncoded 08/15/23 13:21) Sneezing, coughing, coongestion Medication List - Last Reconciled 08/15/23 by Rosanna Vieira, [employer]- amoxicillin-pot clavulanate 875-125 mg 1 tab PO BID 7 days diclofenac sodium 1% 4 grams topical QID 30 days fluticasone propionate 50 mcg/actuation (Flonase Allergy Relief) 1 spray intranasal BID 30 days sulfamethoxazole-trimethoprim 800-160 mg (Bactrim DS) 1 tab PO BID 7 days Tobacco use date assessed: 08/15/23 Dental Screening Dental Screen Date: 07/19/23 HPI HPI Comments History of Present Illness Details Here today for one-week close follow up of infected sebaceous cyst of the right breast. Tolerating compliant with dual antibiotic therapy Augmentin and Bactrim. today is last day of ABT The redness has decreased significantly. She continues to apply warm moist compresses and does have some scant purulent drainage with gentle compression to the area. She denies any fever. Continues to have some mild burning sensation although it has improved since last visit. Is scheduled for excision on August [address] Reynoso. [facility] Medical History Umbilical hernia Morbid obesity Surgical History History of umbilical hernia repair History of cholecystectomy History of tubal ligation History of carpal tunnel surgery Family History Mother History of ovarian cancer Father No problems noted. Mother No problems noted. Brother No problems noted. Brother No problems noted. Sister No problems noted. Son No problems noted. Daughter No problems noted. Daughter No problems noted. Social History Housing: Apartment Alcohol intake: never Patient Tobacco Use Status: Current everyday Tobacco user Cigarettes Per Day: 5 Years Smoked: 18 e-Cigarette/Vaping Use: Never Used service: No Current occupational status: disabled Cognitive needs: No Hearing needs: No Vision needs: No Questionnaire Thrive Questionnaire Date Thrive assessed: 07/19/23 JOSELIN-7 AMB Questionnaire JOSELIN-7 Date JOSELIN - 7 assessed: 07/19/23 Source: Developed by Drs. Chaparro Vogel, Anamika Wells, Tien Larry and colleagues, with an educational ana luisa from [employer]. Review of Systems Const All systems reviewed & are unremarkable except as noted in HPI and below Physical exam (Primary Care) Vital Signs: Last Vital Signs Pulse 97 08/15/23 13:04 BP 128/64 08/15/23 13:04 Pulse Ox 97 08/15/23 13:04 Oxygen Delivery Method Room Air 08/15/23 13:04 BMI result Body Mass Index 38.7 Tobacco/Smoking Status: Tobacco use Status Tobacco use date assessed 08/15/23 08/15/23 13:10 Patient Tobacco Use Status Current everyday Tobacco 08/15/23 13:10 e-Cigarette/Vaping Use Never Used 08/15/23 13:10 Thrive Assessment: Date of Thrive Assessment Date Thrive assessed 07/19/23 08/15/23 13:10 Chest Chest/axillae images: 1. Resolving cyst to right breast, 09:00 o'clock. Soft yellow Center with no drainage, no warmth, no streaking, kristina skin mildly pink. Markedly improved since last visit Assessment and Plan Assessment & Plan (1) Infected sebaceous cyst: Code(s): L72.3 - Sebaceous cyst; L08.9 - Local infection of the skin and subcutaneous tissue, unspecified Plan: Affecting the right breast status post dual antibiotic therapy to be completed today. Looks so much better than last office visit. Advised her to follow up with Dr. Reynoso on August 19 as scheduled. Coding Level of Care Code Est Pt Level 3 (20252) Diagnoses Infected sebaceous cyst L72.3; L08.9
[2023-08-15 13:04] VITALS: BP 128/64; PULSE 97; O2SAT 97; BMI 38.7
== END 2023-08-15 16:39 | disposition home or self-care (01) ==
PROVIDERS: PCP Family Medicine; Visit Provider Nurse Practitioner Family
DX: L72.3 Sebaceous cyst (principal); L08.9 Local infection of the skin and subcutaneous tissue, unspecified
CPT/HCPCS: 99213

== ENCOUNTER → 2023-08-24 16:42 | Outpatient (AMB) | payer MEDICARE, MEDICAID, SELFPAY ==
--- NOTE | 2023-08-24 16:39 | A.OFFPC_ITS ---
Intake Visit Reasons: CPE with f/u labs and health maint. Intake Note: Patient is scheduled to follow up on blood work today and is concerned about yeast infection form all the antibiotics Allergies Seasonale Allergy (Unknown, Uncoded 08/15/23 13:21) Sneezing, coughing, coongestion Medication List - Last Reconciled 08/24/23 by Juan Jose Mclaughlin MD amoxicillin-pot clavulanate 875-125 mg 1 tab PO BID 7 days diclofenac sodium 1% 4 grams topical QID 30 days fluticasone propionate 50 mcg/actuation (Flonase Allergy Relief) 1 spray intranasal BID 30 days sulfamethoxazole-trimethoprim 800-160 mg (Bactrim DS) 1 tab PO BID 7 days Tobacco use date assessed: 08/15/23 Dental Screening Dental Screen Date: 07/19/23 HPI CPE with f/u labs and health maint. HPI Details 58 y/o female presents to f/u labs via [facility]. Labs were drawn 07/27/23. Reviewed labs with pt. Triglycerides 132. TC 287. LDL 210. HDL 51. Vitamin D low at 23.6 ng/mL. [facility] Medical History Umbilical hernia Morbid obesity Surgical History History of umbilical hernia repair History of cholecystectomy History of tubal ligation History of carpal tunnel surgery Family History Mother History of ovarian cancer Father No problems noted. Mother No problems noted. Brother No problems noted. Brother No problems noted. Sister No problems noted. Son No problems noted. Daughter No problems noted. Daughter No problems noted. Social History Housing: Apartment Alcohol intake: never Patient Tobacco Use Status: Current everyday Tobacco user Cigarettes Per Day: 5 Years Smoked: 18 e-Cigarette/Vaping Use: Never Used service: No Current occupational status: disabled Cognitive needs: No Hearing needs: No Vision needs: No Questionnaire Thrive Questionnaire Date Thrive assessed: 07/19/23 JOSELIN-7 AMB Questionnaire JOSELIN-7 Date JOSELIN - 7 assessed: 07/19/23 Source: Developed by Drs. Chaparro Vogel, Anamika Wells, Tien mendez nd colleagues, with an educational ana luisa from [employer]. Review of Systems Const Denies chills, Denies fatigue, Denies fever(s), Denies headache(s) and Denies weakness ENT Denies dizziness and Denies headache(s) Card Denies dyspnea Resp Denies cough, Denies dyspnea, Denies wheezing and Denies other (shortness of breath) Musc Denies numbness and Denies tingling Neuro Denies dizziness, Denies headache(s), Denies numbness, Denies tingling and Denies weakness Psych Denies anxiety and Denies depression Endo Denies fatigue Aller/Immun Denies wheezing Physical exam (Primary Care) Tobacco/Smoking Status: Tobacco use Status Tobacco use date assessed 08/15/23 08/24/23 16:41 Patient Tobacco Use Status Current everyday Tobacco 08/24/23 16:41 e-Cigarette/Vaping Use Never Used 08/24/23 16:41 Thrive Assessment: Date of Thrive Assessment Date Thrive assessed 07/19/23 08/24/23 16:41 Telehealth Telehealth Telehealth Platform: Telephone Location of provider rendering services: practice address Location of patient: address on file Patient Identification confirmed using: Name, : Yes Telehealth method: voice only Patient verbally consented to treatment: Yes Patient verbally consented to billing insurance company: Yes Patient informed of any privacy concerns related to visit: Yes Minutes spent on Phone/Video with Pt.: 12 Assessment and Plan Assessment & Plan (1) Hyperlipidemia: Code(s): E78.5 - Hyperlipidemia, unspecified Plan: Lipids?are?significantly?elevated Start?atorvastatin Will?follow-up?in?a?few?months (2) Polyarthralgia: Code(s): M25.50 - Pain in unspecified joint Plan: Ongoing?polyarthralgia X-rays?show?significant?osteoarthritis?of?cervical ?spine?and?hands She?is?referred?to?new?[facility] Had?tried?ibuprofen?in?the?past?but?it?bothered?her?stomach. Will?trial?celecoxib?as?she?has?not?tried?this?in?quite?some?time?though?she?rosalia d?it?had?helped?much.??She?will?use?this?along?with?diclofenac?gel, ice?and?heat (3) Low vitamin D level: Code(s): R79.89 - Other specified abnormal findings of blood chemistry Plan: Start?vitamin-D?2000?IU?daily We?can?recheck?this?at?her?next?visit?in?a?few?months (4) Infected sebaceous cyst: Code(s): L72.3 - Sebaceous cyst; L08.9 - Local infection of the skin and subcutaneous tissue, unspecified Plan: Now?s/p?Bactrim?and?this?has?improved?but?is?draining?and?she? does?have?an?appointment?coming?up?for?an?incision?and?drainage?with?surgery Will?give?her?additional?Bactrim?to?get?through?the?weekend?without?any?problems . She?also?notes?yeast?infections?with?ant ibiotics?so?I?am?sending?a?script?for?fluconazole?as?well. Orders: Orders Lipid Panel Today E78.5 - Hyperlipidemia, unspecified, Z00.00 - Encounter for general adult medical examination without abnormal findings Comprehensive [place]. Panel Fast Today E78.5 - Hyperlipidemia, unspecified, Z00.00 - Encounter for general adult medical examination without abnormal findings Vitamin D 25-OH Total Today E55.9 - Vitamin D deficiency, unspecified, R79.89 - Other specified abnormal findings of blood chemistry Medications: New cholecalciferol (vitamin D3) 50 mcg PO DAILY 90 days 90 caps 2RF R79.89 - Other specified abnormal findings of blood chemistry celecoxib 200 mg PO BID 90 days 180 caps 1RF atorvastatin 40 mg PO BEDTIME 90 days 90 tabs 3RF fluconazole 150 mg PO Q3D 2 tabs 1RF Changed From sulfamethoxazole-trimethoprim 800-160 mg (Bactrim DS) 1 tab PO BID 7 days 14 tabs 0RF To sulfamethoxazole-trimethoprim 800-160 mg (Bactrim DS) 1 tab PO BID 3 days 6 tabs 0RF Coding Level of Care Code Tele Est Pt Level 2 (73361) Diagnoses Hyperlipidemia E78.5 Polyarthralgia M25.50 Low vitamin D level R79.89 Infected sebaceous cyst L72.3; L08.9
== END ==
PROVIDERS: PCP Family Medicine; Visit Provider Family Medicine
DX: E78.5 Hyperlipidemia, unspecified (principal); M25.50 Pain in unspecified joint; R79.89 Other specified abnormal findings of blood chemistry; L72.3 Sebaceous cyst; L08.9 Local infection of the skin and subcutaneous tissue, unspecified
CPT/HCPCS: 99442

== ENCOUNTER 2023-08-27 13:59 | Outpatient (AMB) | payer MEDICARE, MEDICAID, SELFPAY ==
--- NOTE | 2023-08-27 14:13 | A.OFFVIS_ITS ---
Intake Visit Reasons: evcision sebaceous cyst (R) breast Intake Note: Office procedure: excision of sebaceous cyst right breast. Special Assets Officer Required: No Accompanied by: Other Relationship Allergies Seasonale Allergy (Unknown, Uncoded 08/27/23 14:29) Sneezing, coughing, coongestion HPI HPI evcision sebaceous cyst (R) breast: Details: She was referred for an excision of an epidermal cyst from under the right breast. This actually on the lower chest wall on the right side. She says that she has had some swelling discharge on and off for about 4 months now. She denies any I&D in the past. [facility] Medical History (Updated 08/27/23 @ 14:51 by Justyn Reynoso MD) Epidermal cyst Umbilical hernia Morbid obesity Surgical History History of umbilical hernia repair History of cholecystectomy History of tubal ligation History of carpal tunnel surgery Family History Mother History of ovarian cancer Father No problems noted. Mother No problems noted. Brother No problems noted. Brother No problems noted. Sister No problems noted. Son No problems noted. Daughter No problems noted. Daughter No problems noted. Social History Housing: Apartment Alcohol intake: never Patient Tobacco Use Status: Current everyday Tobacco user Cigarettes Per Day: 5 Years Smoked: 18 e-Cigarette/Vaping Use: Never Used service: No Current occupational status: disabled Cognitive needs: No Hearing needs: No Vision needs: No Review of Systems Const Denies chills and Denies fever(s) Card Denies chest pain, Denies dyspnea and Denies dyspnea on exertion Resp Denies cough, Denies dyspnea and Denies dyspnea on exertion GI Denies hematochezia and Denies change in bowel habits Denies hematuria Musc Denies back pain and Denies limited range of motion Neuro Denies focal weakness and Denies convulsions Psych Denies depression and Denies mood swings Physical Exam Const General: comfortable and no acute distress Chest Other: Lower chest wall under the breasts is note of a cystic induration, about 1.8 cm excision of the ruptured epidermal cyst Office Procedures Excision Details: The area of the cyst was prepped and draped. She was placed supine. Lidocaine 1 % was used for local anesthesia. I made an elliptical incision around the indurated area using blade 15. This was carried down through the full-thickness of the skin subcutaneous fat. The entire indurated area was removed. I closed the incision with full-thickness nylon 3-0 interrupted sutures. Dressings were applied. The procedure was completed. She tolerated procedure well. There was minimal blood loss. 25740-vhvmp/arms/legs 1.1-2cm Procedure code (CPT) selection complete Assessment & Plan Assessment & Plan (1) Epidermal cyst: Code(s): L72.0 - Epidermal cyst Category: Medical Plan: She has this epidermal cyst with recurrent swelling and discharge. She wants to proceed with excision. I explained the technique of excision under local anesthesia. She was aware of the risks, benefits, and alternatives and wanted to proceed Excision was done in the office today under local anesthesia. She was given wound care instructions. I will see her again in the office in about 2 weeks for removal sutures. Coding Level of Care Code Procedure Only Diagnoses Epidermal cyst L72.0 CPT Codes Trunk/Arms/Legs - CPT: 19836-gzzgo/arms/legs 1.1-2cm ([id number])
== END 2023-08-27 15:37 | disposition home or self-care (01) ==
PROVIDERS: PCP Family Medicine; Visit Provider Surgery
DX: L72.0 Epidermal cyst (principal)
CPT/HCPCS: 11402

== ENCOUNTER 2023-08-27 13:59 | Outpatient (REF) | payer MEDICARE, MEDICAID, SELFPAY | END 2023-08-27 14:00 | disposition home or self-care (01) | LOC: HO.LNP 13:59 | PROVIDERS: PCP Family Medicine; Visit Provider Surgery | DX: L72.0 Epidermal cyst (principal) | CPT/HCPCS: 11402; 88304 ==

== ENCOUNTER 2023-09-03 13:55 | Outpatient (AMB) | payer MEDICARE, MEDICAID, SELFPAY ==
[2023-09-03 14:11] VITALS: BMI 38.7
--- NOTE | 2023-09-03 14:11 | A.OFFVIS_ITS ---
Vital Signs 09/03/23 14:11 Height 5 ft Weight 198 lb BMI 38.7 Intake Visit Reasons: follow up excision sebaceous cyst breast Intake Note: Office procedure: excision of sebaceous cyst right breast 08/27/2023. Patient c/o; reports no complaints at this time. 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 She tolerated the procedure well and she currently denies significant complaints. [facility] Medical History Epidermal cyst Umbilical hernia Morbid obesity Surgical History History of removal of cyst (~08/27/23) History of umbilical hernia repair History of cholecystectomy History of tubal ligation History of carpal tunnel surgery Family History Mother History of ovarian cancer Father No problems noted. Mother No problems noted. Brother No problems noted. Brother No problems noted. Sister No problems noted. Son No problems noted. Daughter No problems noted. Daughter No problems noted. Social History Housing: Apartment Alcohol intake: never Patient Tobacco Use Status: Current everyday Tobacco user Cigarettes Per Day: 5 Years Smoked: 18 e-Cigarette/Vaping Use: Never Used service: No Current occupational status: disabled Cognitive needs: No Hearing needs: No Vision needs: No Review of Systems Const Denies chills and Denies fever(s) Card Denies chest pain, Denies dyspnea and Denies dyspnea on exertion Resp Denies cough, Denies dyspnea and Denies dyspnea on exertion GI Denies hematochezia and Denies change in bowel habits Denies hematuria Musc Denies back pain and Denies limited range of motion Neuro Denies focal weakness and Denies convulsions Psych Denies depression and Denies mood swings Physical Exam Vital Signs: BMI result Body Mass Index 38.7 Const General: comfortable and no acute distress Chest Other: Excision site is well healed, not infected, sutures intact Assessment & Plan Assessment & Plan (1) Epidermal cyst: Code(s): L72.0 - Epidermal cyst Category: Medical Plan: Status post excision. Her path report shows a ruptured epidermal cyst. I removed her sutures. The incision is well healed. She can follow up on a p.r.n. basis. Coding Level of Care Code Global (85517) Diagnoses Epidermal cyst L72.0
== END 2023-09-03 14:21 | disposition home or self-care (01) ==
PROVIDERS: PCP Family Medicine; Visit Provider Surgery
DX: L72.0 Epidermal cyst (principal)
CPT/HCPCS: 99024

== ENCOUNTER → 2023-09-03 13:55 | Outpatient (BNVA) | payer MEDICARE, MEDICAID, SELFPAY | PROVIDERS: PCP Family Medicine; Visit Provider Surgery | DX: Z09 Encounter for follow-up examination after completed treatment for conditions other than malignant neoplasm (principal); Z87.2 Personal history of diseases of the skin and subcutaneous tissue | CPT/HCPCS: 99212 ==

== ENCOUNTER 2024-04-01 10:50 | Outpatient (AMB) | payer MEDICARE, MEDICAID, SELFPAY ==
--- NOTE | 2024-04-01 10:59 | MHC.PC.OV ---
Vital Signs 04/01/24 11:04 Height 5 ft Weight 198 lb 2 oz BMI 38.7 BP 110/70 Blood Pressure Location Rt brachial Position Sitting Respiration 16 Pulse 92 Pulse Source Pulse Oximeter Pulse Oximetry (%) 98 Oxygen Delivery Method Room Air Intake Visit Reasons: Internal Bleeding on stomach Intake Note: tcm Allergies Seasonale Allergy (Unknown, Uncoded 09/03/23 14:15) Sneezing, coughing, coongestion Medication List - Last Reconciled 04/01/24 by Juan Jose Mclaughlin MD atorvastatin 40 mg PO BEDTIME 90 days celecoxib 200 mg PO BID 90 days cholecalciferol (vitamin D3) 50 mcg PO DAILY 90 days fluticasone propionate 50 mcg/actuation (Flonase Allergy Relief) 1 spray intranasal BID 30 days Tobacco use date assessed: 08/15/23 Dental Screening Dental Screen Date: 07/19/23 HPI Internal Bleeding on stomach HPI Details 59 y/o female presents to / hospital visit 03/22/24 for abd. wall pain and swelling. CT scan showed L upper rectus sheath hematoma measuring 12.5cm. Lab work remained stable implying bleeding had stopped while admitted. She reports ongoing abd. pain. Notes celecoxib had not been helping much. Complaints of low back pain. TCM TCM Information Date of Discharge 03/23/24 Discharged From Other ([facility]) Interactive Contact Date (Reference documentation from this date) 04/01/24 HPI Comments History of Present Illness Details Documentation assistance for Juan Jose Mclaughlin MD, was provided by Kevin Chance,? [employer] on 04/01/2024 at 11:24 AM RADHA. I, Dr. Mclaughlin, have read, observed, and verified documentation. ?? [facility] Medical History Epidermal cyst Umbilical hernia Morbid obesity Surgical History History of removal of cyst (~08/27/23) History of umbilical hernia repair History of cholecystectomy History of tubal ligation History of carpal tunnel surgery Family History Mother History of ovarian cancer Father No problems noted. Mother No problems noted. Brother No problems noted. Brother No problems noted. Sister No problems noted. Son No problems noted. Daughter No problems noted. Daughter No problems noted. Social History Housing: Apartment Alcohol intake: never Patient Tobacco Use Status: Current everyday Tobacco user Cigarettes Per Day: 5 Years Smoked: 18 e-Cigarette/Vaping Use: Never Used service: No Current occupational status: disabled Cognitive needs: No Hearing needs: No Vision needs: No Questionnaire PHQ-9 Over the last 2 weeks, how often have you been bothered by any of the following problems? 3. Trouble falling or staying asleep, or sleeping too much: more than half the days 4. Feeling tired or having little energy: more than half the days 5. Poor appetite or overeating: several days Source: Developed by Drs. Chaparro Vogel, Anamika Wells, Tien Larry and colleagues, with an educational ana luisa from [employer]. Thrive Questionnaire Date Thrive assessed: 03/29/24 I am a: Patient What is your living situation today?: I have a place to live, but I am worried about losing it in the future Within the past 12 months, did the food you bought not last and you didn't have the money to get more?: Often true Within the past 12 months, did you worry whether your food would run out before you got money to buy more?: Often true Do you have trouble paying for medicines?: Yes Do you have trouble getting transportation to medical appointments?: No Do you have trouble paying your heating and electricity bill?: Yes Do you have trouble taking care of your child, family member or friend?: No Do you have trouble with day-to-day activities such as bathing, preparing meals, shopping, managing finances, etc.?: Yes Are you currently unemployed and looking for a job?: No Are you interested in more education?: No Please select the resources that you would like help with: Housing/[facility], Food, Paying for medicine and Utilities Currently or been in a relationship where the following occur: No concerns reported THRIVE Score: 4 AUDIT C Alcohol Use Questionnaire (AUDIT-C) 1. How often do you have a drink containing alcohol?: Never Total Score: 0 JOSELIN-7 AMB Questionnaire JOSELIN-7 Date JOSELIN - 7 assessed: 07/19/23 Feeling nervous, anxious, or on edge: 0 = Not at all Not being able to stop or control worryin = Several days Worrying too much about different things: 1 = Several days Trouble relaxin = More than half the days Being so restless that it is hard to sit still: 0 = Not at all Becoming easily annoyed or irritable: 1 = Several days Source: Developed by Drs. Chaparro Vogel, Anamika Wells, Tien Larry and colleagues, with an educational ana luisa from [employer]. Review of Systems Const Denies chills, Denies fatigue, Denies fever(s), Denies headache(s) and Denies weakness ENT Denies dizziness and Denies headache(s) Card Denies dyspnea Resp Denies cough, Denies dyspnea, Denies wheezing and Denies other (shortness of breath) GI Reports abdominal pain Musc Reports back pain, Denies numbness and Denies tingling Neuro Denies dizziness, Denies headache(s), Denies numbness, Denies tingling and Denies weakness Psych Denies anxiety and Denies depression Endo Denies fatigue Aller/Immun Denies wheezing Physical exam (Primary Care) Vital Signs: Last Vital Signs Pulse 92 04/01/24 11:04 Resp 16 04/01/24 11:04 BP 110/70 04/01/24 11:04 Pulse Ox 98 04/01/24 11:04 Oxygen Delivery Method Room Air 04/01/24 11:04 BMI result Body Mass Index 38.7 Tobacco/Smoking Status: Tobacco use Status Tobacco use date assessed 08/15/23 04/01/24 11:07 Patient Tobacco Use Status Current everyday Tobacco 04/01/24 11:07 e-Cigarette/Vaping Use Never Used 04/01/24 11:07 Thrive Assessment: Date of Thrive Assessment Date Thrive assessed 03/29/24 04/01/24 11:07 Currently or been in a relationship where the following occur: No concerns reported Const General: well developed; No acute distress Nutritional Appearance: well nourished Orientation/consciousness: patient oriented x3 HENMT Head: Yes normocephalic and Yes atraumatic Eyes General: appearance normal, both eyes and all related structures Pupils: Equal, round and reactive pupils present EOM: EOMs intact bilaterally Resp Effort & Inspection: normal respiratory effort Neuro General: patient oriented x3 and gait normal Cranial nerves: Yes Equal, round and reactive pupils present Psych Affect: normal affect Coding Level of Care Code Est Pt Level 4 (12162) Diagnoses Rectus sheath hematoma S30.1XXA Low back pain M54.50 Osteoarthritis M19.90 Assessment & Plan Assessment & Plan (1) Rectus sheath hematoma: Code(s): S30.1XXA - Contusion of abdominal wall, initial encounter Category: Medical Plan: Patient?was?admitted?to?the?hospital?on?03/22?2024?05/03/2024?for?workup?of?abdominal?wall?pain?and?swelling. CT?scan?showed?left?upper?rectus?sheath?hematoma?measuring?12.5?cm Lab?work?remained?stable?implying?that?bleeding?had?stopped?while?admitted. Had?been?given?2?days?of?oxycodone?at?discharge. Still?has?significant?pain.??Will?give?her?3?days?of?tramadol. Advised?warm?compresses Splinting?when?coughing (2) Low back pain: Code(s): M54.50 - Low back pain, unspecified Category: Medical Plan: Patient?strained?low?back?after?decreased?activity?from?rectus?sheath?hematoma. Will?give?her?a?short?course?of?muscle?relaxant She?can?use?topical?NSAIDs?as?well Can?resume?physical?therapy?slowly Follow-up?with?though/physiatry?as?recommended (3) Osteoarthritis: Code(s): M19.90 - Unspecified osteoarthritis, unspecified site Category: Medical Plan: Polyarthralgia?with?osteoarthritis. Recommended?topicals Recommended?physical?therapy Ice/heat Can?resume?NSAIDs?in?the?future Medications: New cyclobenzaprine 5 mg PO BID 10 days PRN 20 tabs 0RF muscle spasm tramadol 50 mg PO BID 3 days PRN 6 tabs 0RF pain
[2024-04-01 11:04] VITALS: BP 110/70; PULSE 92; RESP 16; O2SAT 98; BMI 38.7
== END 2024-04-01 11:36 | disposition home or self-care (01) ==
PROVIDERS: PCP Family Medicine; Visit Provider Family Medicine
DX: S30.1XXA Contusion of abdominal wall, initial encounter (principal); M54.50 Low back pain, unspecified; M19.90 Unspecified osteoarthritis, unspecified site

== ENCOUNTER → 2024-04-01 10:50 | Outpatient (BNVA) | payer MEDICARE, MEDICAID, SELFPAY | PROVIDERS: PCP Family Medicine; Visit Provider Family Medicine | DX: S30.1XXD Contusion of abdominal wall, subsequent encounter (principal); M54.50 Low back pain, unspecified; M19.90 Unspecified osteoarthritis, unspecified site | CPT/HCPCS: 99212 ==

== ENCOUNTER 2024-04-14 08:20 | Outpatient (REF) | payer MEDICARE, MEDICAID, SELFPAY ==
[2024-04-14 11:34] LABS: Appearance Urine Turbid; Color Urine Yellow; Glucose Urine UA Negative (Negative); Leukocyte Esterase Urine Negative (Negative); Nitrite Urine Negative (Negative); PH 5.5 (5.0-9.0); Urine Blood Negative (Negative); Urine Ketones Negative (Negative); Urine Protein Negative (Neg-Trace)
[2024-04-14 12:13] LABS: Alanine Aminotransferase 23 U/L (0-31); Alkaline Phosphatase 115 U/L (39-117); Anion Gap 9 (12-20); Aspartate Amino Transferase 22 U/L (5-31); Bilirubin Total 0.3 mg/dL (0.0-1.0); Blood Urea Nitrogen 13 mg/dL (9-16); Calcium 8.7 mg/dL (8.4-10.2); Carbon Dioxide 24 mmol/L (22-29); Chloride 110 mmol/L (96-108); Cholesterol 169 mg/dL (<200); Estimated Glomerular Filt Rate > 60; Glucose Fasting 81 mg/dL (60-99); HDL Cholesterol 43 mg/dL (>40); LDL Cholesterol Calculated 100 mg/dL (<100); Potassium 4.1 mmol/L (3.3-5.1); Sodium 139 mmol/L (135-145); Total Protein 7.3 g/dL (6.5-8.0); Triglycerides 131 mg/dL (<150)
== END 2024-04-14 08:21 | disposition home or self-care (01) ==
LOC: HO.WFDLDS 08:20
PROVIDERS: Visit Provider Family Medicine
DX: Z00.00 Encounter for general adult medical examination without abnormal findings (principal); E78.5 Hyperlipidemia, unspecified; M25.50 Pain in unspecified joint; E55.9 Vitamin D deficiency, unspecified; R79.89 Other specified abnormal findings of blood chemistry
CPT/HCPCS: 36415; 80053; 80061; 81003; 82306